=== PATIENT | male | born 1935 | race Caucasian/White ===

== ENCOUNTER 2018-04-22 22:36 | Emergency (ER) | payer MEDICARE, BC ==
[2018-04-22 22:50] VITALS: O2SAT 97
[2018-04-22] MEDS ORDERED: SODIUM CHLORIDE 0.9% FLUSH 10 ML SOL IV PRN (23:11)
[2018-04-22 23:16] LABS: INR 2.18 (0.86-1.12)
[2018-04-22 23:17] LABS: CALCIUM 8.8 mg/dl (8.5-10.1); CARBON DIOXIDE 23.1 mEq/L (21-32); CREATININE 1.45 mg/dl (0.80-1.30); POTASSIUM 4.9 mMol/L (3.5-5.1)
[2018-04-22 23:20] LABS: HEMATOCRIT 41 % (39-53); MEAN CORPUSCULAR HEMOGLOBIN 29.7 pg (27.0-32.0); MEAN CORPUSCULAR HGB CONC 34.2 gm/dl (32.0-36.0); MEAN CORPUSCULAR VOLUME 87 fL (80-100)
[2018-04-22 23:39] LABS: BAND NEUTROPHILS % (MANUAL) 0 %; BASOPHILS % (MANUAL) 0 % (0-3); EOSINOPHILS % (MANUAL) 2 % (0-9); LYMPHOCYTES % (MANUAL) 12 % (10-50); MONOCYTES % (MANUAL) 6 % (0-12); NEUTROPHILS % (MANUAL) 80 % (37-80); NORMAL RBCS PRESENT
[2018-04-23 02:07] VITALS: BP 139/57; PULSE 40; RESP 22; TEMP 98.2
== END 2018-04-22 23:18 | disposition short-term general hospital (02) | DRG 310 ==
LOC: ED 22:36
DX: R00.1 Bradycardia, unspecified (principal); R29.706 NIHSS score 6; R53.1 Weakness; Z79.01 Long term (current) use of anticoagulants; I48.92 Unspecified atrial flutter
CPT/HCPCS: 70450; 72125; 80048; 85007; 85027; 85610; 85730; 93005; 99291